=== PATIENT | male | born 1980 | race African-American/Black ===

== ENCOUNTER 2023-10-12 19:03 | Emergency (ER) | payer OTHER ==
[~2023-10-12] VITALS: Ht 180.3 cm; Wt 150.8 kg
[2023-10-12 19:45] VITALS: RESP 16; O2SAT 97
[2023-10-12] MEDS ORDERED: ACETAMINOPHEN 325MG TABLET PO ONE (20:00)
[2023-10-12] MEDS: ACETAMINOPHEN 325MG TABLET PO NR ×3 (21:52→22:01)
[2023-10-12] MEDS ORDERED: TOPUD MT (21:58)
[2023-10-12] MEDS ORDERED: IBUP-2028 MT (21:58)
[2023-10-12 22:43] VITALS: BP 135/75; PULSE 90; TEMP 99
== END 2023-10-12 22:45 | disposition home or self-care (01) ==
LOC: ER 19:03
DX: S92.251A Displaced fracture of navicular [scaphoid] of right foot, initial encounter for closed fracture (principal); S09.90XA Unspecified injury of head, initial encounter; R58 Hemorrhage, not elsewhere classified; Y04.0XXA Assault by unarmed brawl or fight, initial encounter; Y93.89 Activity, other specified; Y92.89 Other specified places as the place of occurrence of the external cause; Y99.8 Other external cause status
CPT/HCPCS: 29130; 70486; 73110; 73130; 73140; 99284